=== PATIENT | female | born 1975 | race Caucasian/White ===

== ENCOUNTER 2020-06-04 03:44 | Emergency (ER) | payer MEDICAID, SELFPAY ==
[~2020-06-04] VITALS: Ht 162.6 cm; Wt 90.7 kg
[2020-06-04 04:09] VITALS: BP_SYST 132
[2020-06-04] MEDS ORDERED: IPRATROPIUM/ALBUTEROL SULFATE 3 ML AMPUL.NEB (DUONEB) INH ONE (05:00)
[2020-06-04 05:31] VITALS: BP_SYST 122
== END 2020-06-04 05:31 | disposition home or self-care (01) ==
LOC: SED 03:44
DX: J20.9 Acute bronchitis, unspecified (principal); Z20.822 Contact with and (suspected) exposure to COVID-19
CPT/HCPCS: 36415; 71045; 81025; 94640; 99284; 99285

== ENCOUNTER 2020-06-17 14:24 | Emergency (ER) | payer MEDICAID, SELFPAY ==
[~2020-06-17] VITALS: Ht 162.6 cm; Wt 97.5 kg
[2020-06-17 14:46] VITALS: BP_SYST 131
[2020-06-17] MEDS ORDERED: GUAI-1081 PO (16:07)
[2020-06-17] MEDS ORDERED: BENZ-16 PO (16:07)
[2020-06-17 16:25] VITALS: BP_SYST 131
== END 2020-06-17 16:25 | disposition home or self-care (01) ==
LOC: SED 14:24
DX: R05 Cough (principal)
CPT/HCPCS: 99283

== ENCOUNTER 2020-07-29 13:03 | Emergency (ER) | payer MEDICAID, SELFPAY ==
[~2020-07-29] VITALS: Ht 162.6 cm; Wt 97.5 kg
[~2020-07-29 13:03] MED LIST: BENZ-16 PO; GUAI-1081 PO
[2020-07-29 13:09] VITALS: BP_SYST 126
[2020-07-29 14:02] LABS: BILIRUBIN,URINE NEGATIVE (NEGATIVE); BLOOD, URINE NEGATIVE (NEGATIVE); CLARITY/URINE CLEAR (CLEAR); COLOR,URINE YELLOW (YELLOW); GLUCOSE,URINE NEGATIVE (NEGATIVE); KETONES,URINE NEGATIVE (NEGATIVE); LEUKOCYTE ESTERASE ,URINE NEGATIVE (NEGATIVE); NITRITE, URINE NEGATIVE (NEGATIVE); PH,URINE 5.5 (5.0-8.0); PROTEIN URINE NEGATIVE (NEGATIVE)
[2020-07-29] MEDS ORDERED: METR500T PO (14:14)
[2020-07-29] MEDS ORDERED: FLUC200T PO (14:14)
[2020-07-29 14:22] VITALS: BP_SYST 126
== END 2020-07-29 14:22 | disposition home or self-care (01) ==
LOC: SED 13:03
DX: N76.0 Acute vaginitis (principal)
CPT/HCPCS: 81003; 99283

== ENCOUNTER 2020-09-28 18:39 | Emergency (ER) | payer MEDICAID ==
[~2020-09-28] VITALS: Ht 162.6 cm; Wt 95.3 kg
[~2020-09-28 18:39] MED LIST changes: +FLUC200T PO; +METR500T PO
[2020-09-28 18:50] VITALS: BP_SYST 135
[2020-09-28 20:06] VITALS: BP_SYST 135
== END 2020-09-28 20:05 | disposition home or self-care (01) ==
LOC: SED 18:39
DX: T19.2XXA Foreign body in vulva and vagina, initial encounter (principal); Z79.899 Other long term (current) drug therapy; X58.XXXA Exposure to other specified factors, initial encounter; Y93.89 Activity, other specified; Y92.89 Other specified places as the place of occurrence of the external cause; Y99.8 Other external cause status
CPT/HCPCS: 99284

== ENCOUNTER 2020-11-12 04:44 | Emergency (ER) | payer MEDICAID ==
[~2020-11-12] VITALS: Ht 162.6 cm; Wt 95.3 kg
[2020-11-12 05:16] VITALS: BP_SYST 120
[2020-11-12] MEDS ORDERED: FAMOTIDINE 20 MG TABLET PO ONE (05:45)
[2020-11-12] MEDS ORDERED: CETI10CA20 PO (06:03)
[2020-11-12 06:06] VITALS: BP_SYST 118
== END 2020-11-12 06:06 | disposition home or self-care (01) ==
LOC: SED 04:44
DX: L50.9 Urticaria, unspecified (principal); F17.210 Nicotine dependence, cigarettes, uncomplicated; Z79.899 Other long term (current) drug therapy
CPT/HCPCS: 99282

== ENCOUNTER 2021-06-02 18:20 | Emergency (ER) | payer MEDICAID ==
[~2021-06-02] VITALS: Ht 162.6 cm; Wt 90.7 kg
[~2021-06-02 18:20] MED LIST changes: +CETI10CA20 PO
[2021-06-02 19:30] VITALS: BP_SYST 141
[2021-06-03] MEDS ORDERED: CEPH-548 PO (15:43)
[2021-06-03] MEDS ORDERED: IBUP-1969 PO (15:43)
== END 2021-06-02 21:20 | disposition left against medical advice (07) ==
LOC: SED 18:20
DX: L02.416 Cutaneous abscess of left lower limb (principal); Z53.21 Procedure and treatment not carried out due to patient leaving prior to being seen by health care provider

== ENCOUNTER 2021-06-03 15:24 | Emergency (ER) | payer MEDICAID ==
[~2021-06-03] VITALS: Ht 162.6 cm; Wt 90.7 kg
[2021-06-03 15:25] VITALS: BP_SYST 140
[2021-06-03] MEDS ORDERED: CEPH-548 PO (15:43)
[2021-06-03] MEDS ORDERED: IBUP-1969 PO (15:43)
[2021-06-03] MEDS ORDERED: BACITRACIN 1 GM OINT TP ONE ×2 (15:49→16:00)
[2021-06-03 16:00] VITALS: BP_SYST 140
== END 2021-06-03 16:00 | disposition home or self-care (01) ==
LOC: SED 15:24
DX: S80.862A Insect bite (nonvenomous), left lower leg, initial encounter (principal); Z79.899 Other long term (current) drug therapy; W57.XXXA Bitten or stung by nonvenomous insect and other nonvenomous arthropods, initial encounter; Y93.89 Activity, other specified; Y92.89 Other specified places as the place of occurrence of the external cause; Y99.8 Other external cause status
CPT/HCPCS: 99283

== ENCOUNTER 2021-07-04 22:54 | Emergency (ER) | payer MEDICAID ==
[~2021-07-04] VITALS: Ht 162.6 cm; Wt 90.7 kg
[2021-07-04 22:54] VITALS: BP_SYST 142
[~2021-07-04 22:54] MED LIST changes: +CEPH-548 PO; +IBUP-1969 PO
[2021-07-04] MEDS ORDERED: CEPH-548 PO (23:15)
[2021-07-04] MEDS ORDERED: IBUPROFEN 800 MG TABLET PO ONE (23:15)
[2021-07-04] MEDS ORDERED: DIPH-TET-PERTUS Vaccine 0.5 ML VIAL (ADACEL) I.M. ONE (23:15)
[2021-07-04] MEDS ORDERED: IBUP-1970 PO (23:15)
[2021-07-04] MEDS ORDERED: cephALEXin 500 MG CAPSULE PO ONE (23:15)
[2021-07-05 00:11] VITALS: BP_SYST 140
== END 2021-07-05 00:11 | disposition home or self-care (01) ==
LOC: SED 22:54
DX: L03.114 Cellulitis of left upper limb (principal); Z79.899 Other long term (current) drug therapy
CPT/HCPCS: 90715; 99283

== ENCOUNTER 2022-04-05 22:16 | Emergency (ER) | payer MEDICAID ==
[~2022-04-05] VITALS: Ht 162.6 cm; Wt 95.3 kg
[~2022-04-05 22:16] MED LIST changes: +IBUP-1970 PO
[2022-04-05 23:28] VITALS: BP_SYST 139
[2022-04-06 00:19] VITALS: BP_SYST 132
== END 2022-04-06 00:19 | disposition home or self-care (01) ==
LOC: SED 22:16
DX: H91.91 Unspecified hearing loss, right ear (principal); Z79.899 Other long term (current) drug therapy
CPT/HCPCS: 99281

== ENCOUNTER 2022-08-01 18:16 | Emergency (ER) | payer MEDICAID ==
[~2022-08-01] VITALS: Ht 165.1 cm; Wt 98.9 kg
[2022-08-01 18:29] VITALS: BP_SYST 148
[2022-08-01] MEDS ORDERED: IBUPROFEN 800 MG TABLET PO ONE (19:15)
[2022-08-01] MEDS ORDERED: AUG875 PO (21:02)
[2022-08-01] MEDS ORDERED: IBUP-1971 PO (21:02)
[2022-08-01] MEDS ORDERED: FLUT16SP16 NS (21:02)
== END 2022-08-01 21:13 | disposition home or self-care (01) ==
LOC: SED 18:16
DX: J32.0 Chronic maxillary sinusitis (principal); J32.2 Chronic ethmoidal sinusitis; R51.9 Headache, unspecified; H92.01 Otalgia, right ear; Z79.899 Other long term (current) drug therapy
CPT/HCPCS: 70450-TC; 70480; 76376; 81025; 99284

== ENCOUNTER 2023-07-23 04:38 | Emergency (ER) | payer MEDICAID ==
[~2023-07-23] VITALS: Ht 165.1 cm; Wt 101.2 kg
[~2023-07-23 04:38] MED LIST changes: +AUG875 PO; +FLUT16SP16 NS; +IBUP-1971 PO
[2023-07-23 04:43] VITALS: BP_SYST 130; PULSE 88; TEMP 98.2; O2SAT 95
[2023-07-23] MEDS: KETOROLAC TROMETHAMINE 60 MG/2 ML VIAL IM ONE (05:09)
[2023-07-23 05:41] LABS: BILIRUBIN,URINE NEGATIVE (NEGATIVE); BLOOD, URINE 3+ (NEGATIVE); CLARITY/URINE CLEAR (CLEAR); COLOR,URINE YELLOW (YELLOW); GLUCOSE,URINE NEGATIVE (NEGATIVE); KETONES,URINE NEGATIVE (NEGATIVE); LEUKOCYTE ESTERASE ,URINE 2+ (NEGATIVE); NITRITE, URINE NEGATIVE (NEGATIVE); PH,URINE 5.5 (5.0-8.0); PROTEIN URINE NEGATIVE (NEGATIVE); UROBILINOGEN,URINE 0.2 (0.2-1.0)
[2023-07-23 06:10] LABS: BACTERIA,URINE FEW /HPF (None Seen)
[2023-07-23] MEDS ORDERED: METR-154 PO (06:42)
[2023-07-23] MEDS ORDERED: LEVO-62 PO (06:42)
[2023-07-23] MEDS ORDERED: FLUT16SP16 NS (06:46)
[2023-07-23 06:54] VITALS: BP_SYST 130; PULSE 88; TEMP 98.2; O2SAT 95
== END 2023-07-23 06:54 | disposition home or self-care (01) ==
LOC: SED 04:38
DX: N39.0 Urinary tract infection, site not specified (principal); N76.0 Acute vaginitis; H69.81 Other specified disorders of Eustachian tube, right ear; Z79.899 Other long term (current) drug therapy
CPT/HCPCS: 99283; 81001; 87086; 87210; 96372; 81000; 81015; J1885